=== PATIENT | male | born 1960 | race Caucasian/White ===

== ENCOUNTER → 2020-01-13 | Outpatient (CLI) | payer BC ==
[~2020-01-13] MED LIST: ASP81CT PO; DIAZ2TAB2 PO; DIAZ5SOL3 PO; DOXY-182 PO; LEVO150T6 PO; LVT.112T PO; MTP25TSR PO; MULT1CAP27 PO; NAPR220C PO; NIAC1CAP PO; OMEG1CAP51 PO; OMEP20TA2 PO; PRD20T PO; TOPROL PO
--- NOTE | 2020-01-13 11:03 | Diagnostic Imaging Report ---
PROCEDURE: US Thyroid. TECHNIQUE: Multiple real-time grayscale images were obtained of the thyroid in various projections. INDICATION: Dysphagia. COMPARISON: The study compared to 04/15/2012. FINDINGS: There is increased thyromegaly in this patient, the right lobe 5.8 x 3.5 x 1.4 cm previously having measured 4.4 x 1.6 x 1.7 cm. The left thyroid lobe is also enlarged at 5.2 x 1.5 x 1.2 cm, previously 4.2 x 1.9 x 1.2 cm. We again note marked heterogeneity of both lobes of the prostate as well as throughout the isthmus with a few coarse calcifications having become apparent in the left. A peripherally calcified nodule in the right lobe measures about 1 cm and is not appreciably changed from the prior. IMPRESSION: Markedly heterogeneous thyroid gland redemonstrated. Peripherally calcified right lobe mass, unchanged. 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 Dictated by: Dictated on workstation # [id number]
== END ==
LOC: RAD 07:49
PROVIDERS: ATTEND Nurse Practitioner Family
DX: E01.0 Iodine-deficiency related diffuse (endemic) goiter (principal); R13.10 Dysphagia, unspecified
CPT/HCPCS: 76536

== ENCOUNTER → 2020-02-15 | Outpatient (CLI) | payer BC ==
[~2020-02-15] MED LIST changes: +BARIUM for suspension 96% w/w (Vanilla Silq Medium Density) PO ONE; +BARIUM for suspension 98% w/w (Vanilla Silq High Density) PO ONE
--- NOTE | 2020-02-15 11:38 | Diagnostic Imaging Report ---
INDICATION: Difficulty swallowing and lump in the throat. The patient ingested effervescent crystals as well as thin and thick barium and imaging of the esophagus was performed in multiple obliquities. A total of 1 minute and 2 seconds of fluoroscopic time was utilized. The esophagus has a smooth contour. No mass or stricture is identified. No gastroesophageal reflux or hiatal hernia is identified. Images of the stomach are unremarkable. IMPRESSION: Unremarkable esophagram. Dictated by: Dictated on workstation # [id number]
== END ==
LOC: RAD 08:53
PROVIDERS: ATTEND Internal Medicine Endocrinology, Diabetes & Metabolism
DX: R13.10 Dysphagia, unspecified (principal); R22.1 Localized swelling, mass and lump, neck
CPT/HCPCS: 74220

== ENCOUNTER 2020-02-28 05:32 | Outpatient (RCR) | payer BC ==
[~2020-02-28] VITALS: Ht 185.5 cm; Wt 120.7 kg
[~2020-02-28 05:32] MED LIST changes: -BARIUM for suspension 96% w/w (Vanilla Silq Medium Density) PO ONE; -BARIUM for suspension 98% w/w (Vanilla Silq High Density) PO ONE; +METO-333 PO; +MULT-567 PO; +OMEP20TA7 PO
== END 2020-02-28 13:22 | disposition home or self-care (01) ==
LOC: PREOP 05:32
PROVIDERS: ATTEND Surgery
DX: Z01.818 Encounter for other preprocedural examination (principal); Z01.812 Encounter for preprocedural laboratory examination; K21.9 Gastro-esophageal reflux disease without esophagitis; Z20.828 Contact with and (suspected) exposure to other viral communicable diseases
CPT/HCPCS: 87635

== ENCOUNTER 2020-03-02 10:43 | Day surgery (SDC) | payer BC ==
[2020-03-02] VITALS (14 sets, daily range): BP systolic 95–136; BP diastolic 56–90
[~2020-03-02] VITALS: Ht 185.5 cm; Wt 120.7 kg
[2020-03-02] MEDS ORDERED: NS IV 500 ML 500 ML ONE (10:54)
--- NOTE | 2020-03-02 10:57 | Conscious Sedation/ASA ---
Conscious Sedation Pre-Proced Time 10:55 ASA Score 2 For ASA 3 and 4: Consider anesthesia and medical clearance. Also, for patients with a history of failed moderate sedation consider anesthesia. Airway Lungs Heart ASA score ASA 1: a normal healthy patient ASA 2: a patient with a mild systemic disease (mid diabetes, controlled hypertension, obesity ASA 3: a patient with a severe systemic disease that limits activity (angina, COPD, prior Myocardial infarction) ASA 4: a patient with an incapacitating disease that is a constant threat to life (CHF, renal failure) ASA 5: a moribund patient not expected to survive 24 hrs. (ruptured aneurysm) ASA 6: a declared brain- patient whose organs are being harvested. For emergent operations, add the letter E after the classification Mallampati Classification Grade 2 Sedation Plan Analgesia, Amnesia, Plan communicated to team members, Discussed options with patient/fam, Discussed risks with patient/fam The patient is an appropriate candidate to undergo the planned procedure, sedation, and anesthesia. The patient immediately re-assessed prior to indication. JUSTINO PITTS MD Mar 02, 2020 10:57
--- NOTE | 2020-03-02 10:58 | Progress Note-Pre Operative ---
Pre-Operative Progress Note H&P Reviewed The H&P was reviewed, patient examined and no changes noted. Date Seen by Provider: Mar 02, 2020 Time Seen by Provider: 10:55 Date H&P Reviewed: Mar 02, 2020 Time H&P Reviewed: :55 Pre-Operative Diagnosis: GERD, dysphagia JUSTINO PITTS MD Mar 02, 2020 10:58
--- NOTE | 2020-03-02 10:59 | Discharge Inst-Surgical ---
D/C Lap Instructions-GISSELLE Follow Up Activity as tolerated High Fiber Diet 25g or more per day Avoid Alcohol, Caffeine, Spicy Riley and Acid foods. Drink 64 fluid oz or more of fluids per day. Symptoms to Report: Fever over 101 degree F, Nausea/Vomiting If any problems/questions: Contact your physician or go to Emergency Room JUSTINO PITTS MD Mar 02, 2020 10:59
[2020-03-02] MEDS ORDERED: morphine INJ 10 MG/ML 1ML (SYR OR VIAL) IVP PRN ×2 (11:00)
[2020-03-02] MEDS ORDERED: HYDROcodone/APAP 5 MG/325 MG (LORTAB) TAB PO PRN (11:00)
[2020-03-02] MEDS ORDERED: ONDANSETRON 4 MG/2 ML (SDV) Z0FRAN IVP PRN (11:00)
[2020-03-02] MEDS ORDERED: ACETAMINOPHEN 325 MG TABLET PO PRN (11:00)
[2020-03-02] MEDS ORDERED: NS IV 500 ML 500 ML IV PRN (11:06)
[2020-03-02] MEDS ORDERED: fentaNYL INJECTION 100 MCG/2 ML AMP IVP ONE (11:15)
[2020-03-02] MEDS ORDERED: HURRICAINE EXT TUBE (BENZOCAINE) XX PRN (11:15)
[2020-03-02] MEDS ORDERED: fentaNYL INJECTION 100 MCG/2 ML AMP ONE (12:05)
[2020-03-02] MEDS ORDERED: LIDOCAINE JELLY 2% 6 ML SYRINGE ONE (12:05)
[2020-03-02] MEDS ORDERED: HURRICAINE EXT TUBE (BENZOCAINE) ONE (12:06)
[2020-03-02] MEDS ORDERED: MIDAZOLAM 5 MG/5 ML (VERSED) VIAL ONE ×2 (12:06)
[2020-03-02] MEDS: MIDAZOLAM 5 MG/5 ML (VERSED) VIAL IV PRN ×5 (12:28→12:40)
--- NOTE | 2020-03-02 13:00 | Progress Note-Post Operative ---
Post-Operative Progess Note Surgeon (s)/Corsets Salesperson (s) Surgeon JUSTINO PITTS MD Corsets Salesperson: none Pre-Operative Diagnosis GERD, dysphagia Post-Operative Diagnosis reflux esophagitis(stage 2), small HH(1.5cm), mild-moderate gastritis. Procedure & Operative Findings Date of Procedure 03/02/20 Procedure Performed/Findings EGD with bx. Anesthesia Type cs Estimated Blood Loss Estimated blood loss (mL): minimal Specimens/Packing Specimens Removed ge jxn, antrum JUSTINO PITTS MD Mar 02, 2020 13:00
--- NOTE | 2020-03-02 20:57 | OPERATIVE REPORT ---
DATE OF SERVICE: 03/02/2020 ATTENDING PRIMARY CARE PHYSICIAN: Radha Rai MD. PREOPERATIVE DIAGNOSIS: Gastroesophageal reflux disease. POSTOPERATIVE DIAGNOSES: Reflux esophagitis stage II, small hiatal hernia 1 to 1.5 cm in size and mild to moderate gastritis. PROCEDURES PERFORMED: EGD with biopsy. SURGEON: Justino Pitts MD. ANESTHESIA: Conscious sedation. ESTIMATED BLOOD LOSS: Minimal. FINDINGS: Same as postoperative diagnoses. DISPOSITION: The patient tolerated the procedure well. INDICATIONS FOR PROCEDURE: The patient is a 59-year-old male referred over to us for gastroesophageal reflux disease. He states that he has had this for several years; however, in the past two to three months, he does feel a globus sensation upon swallowing. He does report the episodes of reflux and sometimes regurgitation; however, no nausea and no vomiting. He also does report at times, he does have a hoarseness in the morning. 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 An ultrasound was performed of the thyroid gland, which was unremarkable. DESCRIPTION OF PROCEDURE: The patient was brought to the endoscopy suite and laid in the left lateral decubitus position. After adequate IV pain and sedative medications and conscious sedation anesthesia, the mouthpiece was applied. The endoscope was then placed in the mouth, visualizing the pharynx and hypopharyngeal region. Vocal cords, epiglottis and vallecula were identified and appeared to be normal. The endoscope was gently intubated. Esophageal opening and esophagus was insufflated. The endoscope was then advanced through the first, second and third portion of esophagus. At the level of the GE junction, a reflux esophagitis stage II identified. No ulcers or strictures identified in this region. A biopsy was taken with the forceps with visualization of good hemostasis. The endoscope was then advanced into the stomach and the endoscope retroflexed, visualizing a small hiatal hernia 1 to 1.5 cm in size. There was a mild to moderate gastritis. No formal ulcerations, polyps or any neoplasms. A biopsy was taken of the antrum to rule out H. pylori with visualization of good hemostasis. The endoscope was then advanced to the pylorus into the first and second portion of the duodenum, which appeared normal with no distal obstructions. The endoscope was then slowly withdrawn while taking a second look and suctioning of residual air with no additional findings. The patient tolerated the procedure well. We will recommend the necessary lifestyle and diet accommodation including small and more frequent meals, avoiding to eating at night as well as head elevation while lying supine. He also needs to avoid caffeinated beverages, spicy, greasy and acidic foods. We will also have him switch his omeprazole 20 mg to Protonix 40 mg daily. Job ID: [id number] DocumentID: [id number] Dictated Date: 03/02/2020 12:53:09 Early Childhood Coordinator Date: 03/02/2020 20:55:24 Dictated By: JUSTINO PITTS MD
== END 2020-03-02 14:00 | disposition home or self-care (01) ==
LOC: ENDO 10:43
PROVIDERS: ATTEND Surgery
DX: K21.0 Gastro-esophageal reflux disease with esophagitis (principal); K44.9 Diaphragmatic hernia without obstruction or gangrene; K29.60 Other gastritis without bleeding; E78.00 Pure hypercholesterolemia, unspecified; E06.3 Autoimmune thyroiditis; Z79.899 Other long term (current) drug therapy

== ENCOUNTER → 2021-02-21 | Outpatient (CLI) | payer BC ==
--- NOTE | 2021-02-26 12:35 | Diagnostic Imaging Report ---
PROCEDURE: US Thyroid. TECHNIQUE: Multiple real-time grayscale images were obtained of the thyroid in various projections. INDICATION: Follow-up of thyroid nodule. Comparison with 01/13/2020 ultrasound. FINDINGS: Right lobe measures 5 x 2 x 1.2 cm. The isoechoic solid nodule with rim calcification is again demonstrated inferiorly. This measures 1.2 x 0.8 cm today. The left lobe measures 4 x 1.5 x 1.4 cm and shows a single coarse 3 mm calcification. IMPRESSION: Well-circumscribed nodule with rim calcification right lobe has decreased slightly in size since previous examination. TI-RADS 3 Dictated by: Dictated on workstation # [id number]
== END ==
LOC: RAD 15:46
PROVIDERS: ATTEND Internal Medicine Endocrinology, Diabetes & Metabolism
DX: E04.1 Nontoxic single thyroid nodule (principal)
CPT/HCPCS: 76536

== ENCOUNTER → 2021-12-24 | Outpatient (CLI) | payer BC ==
[~2021-12-24] MED LIST changes: +OMEP20TA56 PO; -OMEP20TA7 PO
--- NOTE | 2021-12-24 16:48 | Diagnostic Imaging Report ---
PROCEDURE: US left lower extremity venous. TECHNIQUE: Multiple real-time grayscale images were obtained over the left lower extremity in various projections. Additional duplex Doppler and color Doppler images were also obtained. INDICATION: Left leg pain. FINDINGS: Femoropopliteal deep venous system showed normal color flow, normal waveforms, and normal compressibility. There is no deep vein thrombus. The major calf veins are patent. No fluid collection demonstrated. IMPRESSION: Normal negative unilateral left lower extremity venous Doppler and ultrasound exam. Dictated by: Dictated on workstation # [id number]
== END ==
LOC: RAD 16:10
PROVIDERS: ATTEND Nurse Practitioner Family
DX: I83.92 Asymptomatic varicose veins of left lower extremity (principal)

== ENCOUNTER 2022-10-16 05:38 | Outpatient (CLI) | payer BC ==
[~2022-10-16] VITALS: Ht 185.5 cm; Wt 120.4 kg
[2022-10-20] MEDS ORDERED: ASPI-999 PO (10:36)
[2022-10-20] MEDS ORDERED: SELE200T11 PO (10:36)
[2022-10-20] MEDS ORDERED: FISH OIL (10:36)
== END 2022-10-20 10:37 | disposition home or self-care (01) ==
LOC: PREOP 05:38
PROVIDERS: ATTEND Specialist
DX: Z01.818 Encounter for other preprocedural examination (principal)

== ENCOUNTER 2022-10-24 08:42 | Day surgery (SDC) | payer BC ==
[~2022-10-24] VITALS: Ht 185.5 cm; Wt 120.4 kg
[~2022-10-24 08:42] MED LIST changes: +ASPI-999 PO; +FISH OIL; +SELE200T11 PO
[2022-10-24] MEDS ORDERED: TIMOLOL 0.5% (CATARACTS) 0.3 ML BTL OU PRN (09:00)
[2022-10-24] MEDS ORDERED: POVIDONE (BETADINE) OPHTH SOLN 5% 30 ML OP ONE (09:00)
[2022-10-24] MEDS ORDERED: MOXIFLOXACIN OPHTH SOLN 5 MG/ML 0.3 ML SYRINGE OP ONE (09:00)
[2022-10-24] MEDS: TETRACAINE 0.5% OPHTH SOLN 4 ML BTL (SINGLE DOSE ONLY) OU PRN ×4 (09:03→09:19)
[2022-10-24 09:07] VITALS: BP 142/84
[2022-10-24] MEDS: TROPICAMIDE 1% OPH SOLN (MYDRIACYL) 15 ML BTL OP SCH ×3 (09:09→09:19)
[2022-10-24] MEDS: PHENYLEPHRINE 10% OPHTH (NEO-SYN) 5 ML BTL OU SCH ×3 (09:09→09:19)
--- NOTE | 2022-10-24 09:28 | Ophthalmologist Pre-Op Note ---
Pre-Operative Progress Note H&P Reviewed The H&P was reviewed, patient examined and no changes noted. Date H&P Reviewed: Oct 24, 2022 Time H&P Reviewed: 09:28 Pre-Op Dx Cataract, Right Eye FRANCISCA MCLEAN MD Oct 24, 2022 09:28
[2022-10-24] MEDS ORDERED: MIDAZOLAM 2 MG/2 ML (VERSED) VIAL ONE (09:32)
--- NOTE | 2022-10-24 09:52 | Ophthalmology Operative Report ---
Cataract removal/placement IOL PREOPERATIVE DIAGNOSIS: Cataract Right Eye POSTOPERATIVE DIAGNOSIS: Cataract Right Eye PROCEDURE: Cataract removal and placement of posterior chamber implant, right eye SURGEON: Marko Mclean ANESTHESIA: Topical with sedation COMPLICATIONS: None ESTIMATED BLOOD LOSS: Minimal DESCRIPTION OF PROCEDURE: After proper informed consent was obtained, the patient, a 62 male, was taken to the Operating Room and the right eye was anesthetized with tetracaine. The right eye was then prepped and draped in the usual manner. A wire lid speculum was placed. A paracentesis was made at the left hand position. Preservative free lidocaine was injected into the anterior chamber followed by viscoelastic. A clear corneal incision was made in the temporal position. A capsulorrhexis was preformed and the central nuclear and cortical material were removed. The posterior capsule was polished and Jon 26.5 [id number] IOL was placed into the capsular bag. The residual viscoelastic was aspirated and balanced saline solution was injected into the anterior chamber. Moxifloxacin was injected into the anterior chamber. The wound was checked and found to be water tight. The patient tolerated the procedure well without complications. MARKO MCLEAN MD Oct 24, 2022 09:52
[2022-10-24 09:54] VITALS: BP 122/75
[2022-10-24] MEDS ORDERED: acetaZOLAMIDE ER 500 MG CAP (DIAMOX SEQUELS) PO ONE (11:30)
--- NOTE | 2022-10-24 12:05 | Anesthesia-General Post-Op ---
MAC Patient Condition Mental Status/LOC: Same as Preop Cardiovascular: Satisfactory Nausea/Vomiting: Absent Respiratory: Satisfactory Pain: Controlled Complications: Absent Post Op Complications Complications None Follow Up Care/Instructions Patient Instructions None needed. Anesthesiology Discharge Order Discharge Order Patient was doing well this morning after the procedure with no complaints, stable vital signs, no apparent adverse anesthesia problems. No complications reported per nursing. BENSON MARIANO DO Oct 24, 2022 12:05
== END 2022-10-24 09:55 | disposition home or self-care (01) ==
LOC: SDC 08:42
PROVIDERS: ATTEND Specialist
DX: H25.9 Unspecified age-related cataract (principal)
CPT/HCPCS: 66984; V2632

== ENCOUNTER → 2023-03-17 | Outpatient (CLI) | payer BC ==
--- NOTE | 2023-03-17 11:49 | Diagnostic Imaging Report ---
PROCEDURE: US Thyroid. TECHNIQUE: Multiple real-time grayscale images were obtained of the thyroid in various projections. INDICATION: Thyroid nodule. COMPARED: 02/21/2021 FINDINGS: Right thyroid lobe 4.9 x 1.9 x 1.5 cm is diffusely heterogeneous in echotexture and contains a dominant mass with midpole 1.2 cm long axis with curvilinear peripheral rim calcifications, previously measured 1.3 cm. Left thyroid lobe contains a unchanged 3 mm partially calcified hyperechoic nodule with no new mass. IMPRESSION: Stable benign-appearing TIRADS 3 lesions showed benign behavior. No suspicious lesion found. No adverse development. Dictated by: Dictated on workstation # [id number]
== END ==
LOC: RAD 07:28
PROVIDERS: ATTEND Internal Medicine Endocrinology, Diabetes & Metabolism
DX: E04.1 Nontoxic single thyroid nodule (principal)
CPT/HCPCS: 76536